=== PATIENT | male | born 1945 | race Caucasian/White ===

== ENCOUNTER 2019-01-03 15:27 | Inpatient (IN) ==
[2019-01-03] MEDS ORDERED: ASPIRIN PO ONE (15:50)
--- NOTE | 2019-01-03 15:53 | EKG Report ---
Test Performed on : 01/03/2019 3:46:50 PM Test Reason : SOB Blood Pressure : / mmHG Vent. Rate : 066 BPM Atrial Rate : 066 BPM P-R Int : 180 ms QRS Dur : 092 ms QT Int : 442 ms P-R-T Axes : 009 -09 -06 degrees QTc Int : 463 ms Normal sinus rhythm. Minimal voltage criteria for LVH, may be normal variant Inferior infarct , age undetermined Abnormal ECG No previous ECGs available Unconfirmed Result
[2019-01-03 16:14] LABS: BASO# 0.02 X1000 (0.0-0.2); BASO% 0.3 % (0.0-0.8); EOS# 0.11 X1000 (0.0-0.7); EOS% 1.7 % (0.0-10.0); HEMATOCRIT 39.7 % (42.0-52.0); HEMOGLOBIN 13.7 g/dL (14.0-18.0); LYMPH# 1.88 X1000 (1.2-3.4); LYMPH% 29.2 % (20.5-51.1); MCH 31.2 PG (27-31); MCHC 34.5 g/dL (33-37); MCV 90.4 FL (81-99); MONO# 0.59 X1000 (0.11-0.59); MONO% 9.2 % (1.7-9.3); NEUT# 3.84 X1000 (1.4-6.5); NEUT% 59.6 % (42.2-75.2); PLT 282 X1000 (130-400); RBC 4.39 XMIL (4.7-6.1); RDW 14.1 % (11.5-14.5); WBC 6.44 X1000 (4.8-10.8)
[2019-01-03 16:23] LABS: INR 0.96; PROTIME 12.9 Seconds (11.0-16.0); PTT 25.8 Seconds (22.3-41.8)
[2019-01-03 16:32] LABS: AGAP 15; ALB/GLOB RATIO 1.7; ALBUMIN 4.6 g/dL (3.5-5.0); ALKALINE PHOSPHATASE 68 U/L (32-122); BUN 17 mg/dL (8-22); CALCIUM 8.9 mg/dL (8.8-10.2); CHLORIDE 101 mmol/L (98-107); CK PROFILE 104 U/L (24-204); COSMO 287; CREATININE 1.1 mg/dL (0.7-1.2); ESTIMATED GFR > 60; GLUCOSE 101 mg/dL (70-104); GOT 40 U/L (10-34); GPT 52 U/L (10-44); POTASSIUM 3.6 mmol/L (3.5-5.1); SODIUM 143 mmol/L (136-145); TCO2 27 mmol/L (25-35); TOTAL BILIRUBIN 0.31 mg/dL (0.20-1.00); TOTAL PROTEIN 7.3 g/dL (6.3-8.3)
--- NOTE | 2019-01-03 16:52 | Diag Imaging Result Doc PS360 ---
CHEST-2 VIEWS - 01/03/2019 INDICATION: SOB COMPARISON: None FINDINGS: There is some patchy atelectasis in both lung bases, nonspecific. Heart size is borderline enlarged. No pneumothorax or pleural effusion. IMPRESSION: Nonspecific patchy atelectasis in both lung bases. Electronically signed by Abilio Mccullough 01/03/2019 4:50 PM
[2019-01-03] MEDS ORDERED: DUONEB (A & A) INH ONE (18:12)
[2019-01-03] MEDS ORDERED: LASIX IV ONE (18:51)
--- NOTE | 2019-01-03 19:02 | PROVIDER DOCUMENTATION ---
This chart was entered by Katherine Lorenzo Scribe, acting as scribe for Chrystal Donnelly MD. HPI-Respiratory General - General Chief Complaint: Shortness of Breath Stated Complaint: BP HIGH VERY WEAK SOB Time Seen by Provider: 01/03/19 17:55 Source: patient Allergies/Adverse Reactions: Patient Allergies Allergy/AdvReac Type Severity Reaction Status Date / Time No Known Allergies Allergy Verified 01/03/19 18:43 Home Medications: Home Medication List Medication Instructions Recorded Confirmed Last Taken Type Buspirone HCl 7.5 mg PO BID 01/03/19 01/03/19 Unknown History Dextroamphetamine/Amphetamine 10 mg PO TID 01/03/19 01/03/19 Unknown History [Adderall 10 mg Tablet] Indapamide 2.5 mg PO BID 01/03/19 01/03/19 Unknown History Metoprolol [Lopressor] 100 mg PO BID 01/03/19 01/03/19 Unknown History Rizatriptan Benzoate [Rizatriptan] 5 mg SUBLINGUAL BID PRN 01/03/19 01/03/19 Unknown History - History of Present Illness-Resp Nature of Presenting Problem: pt is a 73 yom c/o sob x 5-6 weeks. pt rpts that sob is worse when exerting self when walking. denies LE weakness and edema. no rx allergies. pt is in no acute distress, a&ox3. pt is a former smoker for 10yrs, smoked 1ppd. pt has hx of HTN. sx appendectomy. Onset/Duration: reports: other (5-6 wks) Exposure: reports: unknown cause Cough Quality/Degree: reports: no cough Modifying Factors: improves with: exertion Review of Systems - Adult - REVIEW OF SYSTEMS - ADULT Constitutional: reports: no symptoms reported. denies: chills, fever, night sweats Eyes: reports: no symptoms reported Ears, Nose, Mouth & Throat: reports: no symptoms reported Cardiovascular: reports: no symptoms reported Respiratory: reports: see HPI, dyspnea on exertion. denies: chronic cough, cough, hemoptysis, pleurisy, wheezing Gastrointestinal: reports: no symptoms reported Genitourinary: reports: no symptoms reported Musculoskeletal: reports: no symptoms reported Integumentary: reports: no symptoms reported Neurological: reports: no symptoms reported Psychiatric: reports: no symptoms reported Endocrine: reports: no symptoms reported Hematologic/Lymphatic: reports: no symptoms reported Allergic/Immunologic: reports: no symptoms reported All Other Systems: Reviewed and Negative Past History - Adult - PAST MEDICAL HISTORY-ADULT Review of Records: reports: Old Records Reviewed, Nursing Assessment Review, Medications Reviewed, Social history reviewed & non-contributory. Major Childhood Illnesses: reports: denies history Cardiovascular: reports: HTN Respiratory: reports: denies history Gastrointestinal: reports: denies history Obstetrical/Gynecological: reports: denies history Genitourinary: reports: denies history Musculoskeletal: reports: denies history Neurological: reports: denies history Psychiatric: reports: other (adhd, add) Endocrine/Immune: reports: denies history Other Conditions: reports: denies history - PRIOR SURGERIES/PROCEDURES Surgical/Procedure History: reports: appendectomy - IMMUNIZATION STATUS Childhood Immunizations: See Nurse Assessment Flu Vaccine: See Nurse Assessment - FAMILY HISTORY Family History: reviewed, not pertinent - SOCIAL HISTORY Smoking: other (former smoker for 10 years 1ppd) Substance Use: none/never Physical Exam-General - PHYSICAL EXAM-ADULT Initial Vital Signs Reviewed: Yes - CONSTITUTIONAL General Appearance: appears well, alert, no apparent distress. negative: lethargic, slow to respond, obtunded, combative - EYES Eyes: PERRL/EOMI, pink conjunctivae - HEAD, EARS, NOSE, MOUTH & THROAT HENMT: normocephalic/atraumatic, moist mucous membranes, normal ENT inspection - NECK Neck: non-tender, full range of motion, supple, normal inspection - RESPIRATORY Respiratory: chest non-tender, lungs clear, normal breath sounds, no pleuratic chest pain, no respiratory distress, no accessory muscle use. negative: respiratory distress, decreased breath sounds, rales, wheezing - CARDIOVASCULAR Cardiovascular: normal peripheral pulses, regular rate, rhythm - GASTROINTESTINAL (ABDOMEN) Abdominal Exam: normal bowel sounds, non tender, soft - LYMPHATIC Lymphatic: no adenopathy - MUSCULOSKELETAL Back Exam: normal inspection, no CVA tenderness, no vertebral tenderness Extremity: normal range of motion, non-tender, normal inspection, no pedal edema , no calf tenderness, normal capillary refill, pelvis stable, other (no LE edema). negative: pulse deficit, slow capillary refill, swelling, tenderness Peripheral Pulses: radial (R): 2+, radial (L): 2+ - SKIN Integumentary: normal color, normal turgor, warm/dry - NEUROLOGIC Neurologic: readers' advisory service librarian II-XII nml as tested, grossly normal, no motor/sensory deficits - PSYCHIATRIC Psych/Mental Status: normal mood/affect, normal thought content, normal thought process, oriented x 3 Progress - PLAN OF CARE/RESULTS Progress/Plan/Lab Results: Vital Signs - 8 hr 01/03/19 15:39 01/03/19 17:37 01/03/19 18:31 Temperature 98.2 F 98.9 F Pulse Rate 68 66 66 Respiratory Rate 18 18 15 Blood Pressure 158/93 160/97 O2 Sat by Pulse Oximetry 99 96 100 01/03/19 18:35 Temperature Pulse Rate 64 Respiratory Rate 12 Blood Pressure 174/88 O2 Sat by Pulse Oximetry 100 Laboratory Results - last 24 hr 01/03/19 01/03/19 01/03/19 15:53 15:53 15:53 WBC 6.44 RBC 4.39 L Hgb 13.7 L Hct 39.7 L MCV 90.4 MCH 31.2 H MCHC 34.5 RDW Std Deviation 14.1 Plt Count 282 MPV 9.0 Immature Gran % (Auto) 0.0 Neut % (Auto) 59.6 Lymph % (Auto) 29.2 Jackson % (Auto) 9.2 Eos % (Auto) 1.7 Baso % (Auto) 0.3 Immature Gran # (Auto) 0.00 Neut # (Auto) 3.84 Lymph # (Auto) 1.88 Jackson # (Auto) 0.59 Eos # (Auto) 0.11 Baso # (Auto) 0.02 PT INR PTT (Actin FS) D-Dimer, Quantitative Sodium 143 Potassium 3.6 Chloride 101 Carbon Dioxide 27 Anion Gap 15 BUN 17 Creatinine 1.1 Estimated GFR/1.73 m2 > 60 BUN/Creatinine Ratio 15 Glucose 101 Calculated Osmolality 287 Calcium 8.9 Total Bilirubin 0.31 AST 40 H ALT 52 H Alkaline Phosphatase 68 Creatine Kinase 104 Troponin T [id number]-[id number] Pept 793 H Total Protein 7.3 Albumin 4.6 Globulin 2.7 Albumin/Globulin Ratio 1.7 01/03/19 01/03/19 01/03/19 15:53 15:53 15:57 WBC RBC Hgb Hct MCV MCH MCHC RDW Std Deviation Plt Count MPV Immature Gran % (Auto) Neut % (Auto) Lymph % (Auto) Jackson % (Auto) Eos % (Auto) Baso % (Auto) Immature Gran # (Auto) Neut # (Auto) Lymph # (Auto) Jackson # (Auto) Eos # (Auto) Baso # (Auto) PT 12.9 INR 0.96 PTT (Actin FS) 25.8 D-Dimer, Quantitative 0.36 Sodium Potassium Chloride Carbon Dioxide Anion Gap BUN Creatinine Estimated GFR/1.73 m2 BUN/Creatinine Ratio Glucose Calculated Osmolality Calcium Total Bilirubin AST ALT Alkaline Phosphatase Creatine Kinase Troponin T < 0.010 Kkc-Q-[id number] Pept Total Protein Albumin Globulin Albumin/Globulin Ratio Orders Category Date Time Status Cardiac Monitoring DIRECTED Care 01/03/19 15:50 Active Oxygen Therapy- ED Nursing DIRECTED Care 01/03/19 15:50 Active Saline Loc NOW Care 01/03/19 15:50 Active CHEST-2 VIEWS [RAD] Stat Exams 01/03/19 15:50 Completed CBC WITH ELECTRONIC DIFF [HEME] Stat Lab 01/03/19 15:53 Completed CK PROFILE [SP CHEM] Stat Lab 01/03/19 15:53 Completed CK TOTAL [CHEM] Stat Lab 01/03/19 19:00 Ordered COMPREHENSIVE METABOLIC PANEL [CHEM] Stat Lab 01/03/19 15:53 Completed D-DIMER [COAG] Stat Lab 01/03/19 15:57 Completed PRO B-NATRIURETIC PEPTIDE Stat Lab 01/03/19 15:53 Completed PROTIME WITH INR [COAG] Stat Lab 01/03/19 15:53 Completed PTT [COAG] Stat Lab 01/03/19 15:53 Completed TROPONIN T Stat Lab 01/03/19 15:53 Completed TROPONIN T Stat Lab 01/03/19 19:00 Ordered Albuterol 2.5MG/Ipratrop 0.5MG [Duoneb (A & A)] Med 01/03/19 18:12 Discontinue d 3 ml INH NOW ONE Aspirin Med 01/03/19 15:50 Discontinued 325 mg PO NOW ONE Furosemide [Lasix] Med 01/03/19 18:51 Discontinued 20 mg IV NOW ONE Aerosol Treatments Routine Oth 01/03/19 18:12 Completed Aerosol Treatments Stat Oth 01/03/19 18:12 Completed CP/SOB/Palp >45 yrs of Age Stat Oth 01/03/19 15:50 Ordered EKG [EKG] Stat Ther 01/03/19 15:50 Draft EKG [EKG] Stat Ther 01/03/19 18:07 Ordered Result Diagrams: 01/03/19 15:53 01/03/19 15:53 - REASSESSMENT Reassessment #1 Time Reassessed: 18:34 Status: other (BOTH LABS AND IMAGE REVIEWED. ELEVATED BNP IN THE SETTING OF EXTREME STRESS AT HOME CONCERN FOR NONISCHEMICA CARDIOMYOPATHY POSSIBLY [place] CARDIOMYOPATHY. WILL SPEAK TO HOSPITALIST FOR ADMISSION FOR NEW ONSET HEART FAILURE.) - EKG 1 Time of EKG reading by physician:: 15:46 EKG Read and Signed by:: Ermias London EKG Interpretation (*Must complete 3 of following elements*): Abnormal Rate: 66 Rhythm: NSR [place]: normal QRS: LVH (minimal voltage criteria for LVH, may be normal variant.) [place] Interval: normal ST Wave: normal Comments: inferior infarct, age undetermined. - XRAY 1 XRAY Study: Chest Impression: Abnormal, See EMR Report (CHEST-2 VIEWS - 01/03/2019 INDICATION: SOB COMPARISON: None FINDINGS: There is some patchy atelectasis in both lung bases, nonspecific. Heart size is borderline enlarged. No pneumothorax or pleural effusion. IMPRESSION: Nonspecific patchy atelectasis in both lung bases. Electronically signed by Abilio Mccullough 01/03/2019 4:50 PM) - CONSULTS/PCP/HOSPITALIST Notification #1 *Consult/PCP/Hospitalist*: Irma Time Discussed: 18:59 Consult Disposition: Admit Departure - Departure Date of Disposition Decision: 01/03/19 Time of Disposition Decision: 19:01 DIAGNOSIS: CHF exacerbation, Elevated brain natriuretic peptide (BNP) level Disposition: ADMITTED INPATIENT 09 Certified Medical Emergency: Emergent Condition: Stable Referrals and Follow-Ups: Ana María Lazaro CRNP [Primary Care Provider] - - Critical Care Note This patient required my direct & personal management of CC.: No Attestation - Physician/ SHELDON Attestation Patient care was provided by Advanced Practice Provider:: No The physician spent face to face time with patient:: Yes Advanced Practice Provider documentation review:: Supervising physician onsite and consulted in the evaluation and care of this patient. The physician did have a face to face encounter with the patient. This chart was documented by the indicated scribe, (Katherine Lorenzo Scribe) and accurately reflects the services I performed and decisions made by me, Chrystal Donnelly MD, as attested by the provider's signature.
[2019-01-03] MEDS ORDERED: KLOR-CON PO ONE (19:54)
--- NOTE | 2019-01-03 21:15 | Diag Imaging Result Doc PS360 ---
CT THORAX W/O CONTRAST - 01/03/2019 INDICATION: progressive dyspnea COMPARISON: Previous chest x-ray FINDINGS: There is no adenopathy. Heart size is normal. There is severely advanced calcified coronary artery disease mainly at the left anterior descending coronary artery. There is diffuse fatty change of the liver. Otherwise upper abdominal images are unremarkable. There is mild multifocal linear atelectasis in the lung bases. There are some small clustered nodules in the right lower lobe. The largest measures about 8.5 mm. Otherwise, no infiltrates. There is mild diffuse bronchiectasis. No bronchial wall thickening. Bones are intact and well mineralized. IMPRESSION: 1. Diffuse bronchiectasis. Scattered atelectasis in the lung bases. 2. Fatty liver. 3. Clustered nodules in the right lower lobe, nonspecific but likely granulomas. Recommend a follow-up chest CT in about 3-6 months. This exam was performed using automated exposure control, adjustment of mA or kV according to patient size, and/or use of iterative reconstruction technique Electronically signed by Abilio Mccullough 01/03/2019 9:13 PM
[2019-01-03] MEDS ORDERED: TYLENOL PO PRN (21:19)
[2019-01-03] MEDS ORDERED: ZOFRAN IV PRN (21:19)
--- NOTE | 2019-01-03 21:19 | HISTORY AND PHYSICAL ---
PRIMARY CARE PHYSICIAN: ARIS Wright REASON FOR ADMISSION: Four to six-week history of dyspnea. HISTORY OF PRESENT ILLNESS: Rashawn Oconnell is a 73-year-old male with past medical history of hypertension and migraines who comes in today complaining of progressive shortness of breath over the last 4 or 6 weeks. He denies any PND, orthopnea, chest pain, admits to having occasional cough. His denies any weight loss, fever or chills. The patient denies any night sweats. He does have a history of mild seasonal allergic rhinitis but states that other than having postnasal drip, does not have any ocular or nasal pruritus. No contact with chemicals. No recent change in his medications other than increasing the dose of indapamide to b.i.d. He says since they have done this, not only does he have shortness of breath, he has weakness in his legs. He denies any vomiting or diarrhea. He denies any genitourinary complaints other than poor urinary stream, which is chronic for years. No hematuria. No bleeding from any orifice. He denies any leg cramps. Since he has been in the ER, he got nebulizer treatments. He says it made him feel a little better. I forgot to mention he does admit to having occasional dry cough. No leg swelling or abdominal swelling. REVIEW OF SYSTEMS: Twelve system review was done. Positive findings per HPI. ALLERGIES: None. MEDICATIONS: He is on Adderall 10 mg t.i.d., BuSpar 7.5 mg b.i.d., indapamide 2.5 mg b.i.d., Lopressor 100 mg b.i.d., rizatriptan 5 mg p.r.n. SURGICAL HISTORY: Appendectomy and wisdom tooth extraction. SOCIAL HISTORY: Stopped smoking 40 years ago. No alcohol or drug use. , lives with . FAMILY HISTORY: Notable for heart disease, type 2 diabetes, but no cancer. LABORATORY WORK: White count 6000, hemoglobin and hematocrit 13 and 39, platelets 282,000. Potassium 3.6, BUN 17, creatinine 1.1, AST 40, ALT 52. Troponin is negative. ProBNP 793. PT, PTT and D-dimer are normal. IMAGING: Chest film showed nonspecific patchy atelectasis in both lungs. PHYSICAL EXAMINATION: VITAL SIGNS: Blood pressure 174/88, heart rate 64, respirations 17, temperature is 98.9 degrees, 100% on room air. GENERAL: An elderly man not in acute distress. He is alert and oriented to person, place, and time with sad affect and depressed mood. HEAD: Normocephalic, atraumatic. EYES: PERRLA. EOMI. He is anicteric, not pale. ENT EXAM: Grossly normal. There is no cyanosis. NECK: Supple. No JVD or carotid bruit. No thyromegaly. CHEST: Clear when auscultated with good air entry both lung stevens. CARDIOVASCULAR: First and second heart sounds heard. No gallops or rubs. Regular. ABDOMEN: Protuberant, soft, nontender. No organomegaly. Bowel sounds normal. RECTAL: Deferred. EXTREMITIES: Diminished distal pulse volumes, regular, symmetrical. No edema, clubbing or cyanosis. NEUROLOGICAL EXAM: No gross focal deficits. SKIN: Intact. No breakdown, lesion or erythema. MUSCULOSKELETAL EXAM: Grossly normal. ASSESSMENT: 1. Subacute dyspnea, etiology yet to be determined. It could represent subclinical asthma based on his allergic rhinitis and mild improvement in breathing treatment. Continue the patient on breathing treatments and ordered a CT thorax. We will also start patient on moderate doses of prednisone to see if this improves the symptoms by tomorrow. 2. Hypertension, appears to be not optimally controlled. I would for now monitor blood pressure and decide on possibly putting patient on Aldactone to counter potassium losses from indapamide. Also need to check patient for orthostasis too as he says as long as he is at rest he feels fine, but when he ambulates, he feels his legs keep trying to give out on him. 3. Migraines, currently stable. We will monitor. Also additionally would order an echocardiogram due to the fact the patient has a strong family history of heart failure to see if there is a cardiac component to his complaints. If nothing can be found, I will recommend possibly an outpatient PFT and possible high-resolution CT scan to rule out any occult interstitial lung disease. cc: Raymond Lei MD
[2019-01-03] MEDS: BUSPAR PO SCH (21:40)
[2019-01-03] MEDS: LOPRESSOR PO SCH (21:40)
[2019-01-03] MEDS: AMBIEN PO SCH (21:40)
[2019-01-03] MEDS: DUONEB (A & A) INH SCH (21:47)
[2019-01-03] MEDS: PRILOSEC PO SCH (22:28)
[2019-01-04] MEDS: DUONEB (A & A) INH SCH ×3 (05:51→21:18)
[2019-01-04] MEDS: PRILOSEC PO SCH (06:17)
[2019-01-04] MEDS ORDERED: PRILOSEC PO SCH (07:00)
[2019-01-04] MEDS: ADDERALL PO SCH ×3 (07:56→16:38)
[2019-01-04 08:05] LABS: AGAP 16; BUN 18 mg/dL (8-22); CALCIUM 8.9 mg/dL (8.8-10.2); CHLORIDE 98 mmol/L (98-107); COSMO 284; CREATININE 1.1 mg/dL (0.7-1.2); ESTIMATED GFR > 60; GLUCOSE 115 mg/dL (70-104); MAGNESIUM 1.9 mg/dL (1.5-2.7); POTASSIUM 3.1 mmol/L (3.5-5.1); SODIUM 141 mmol/L (136-145); TCO2 27 mmol/L (25-35)
[2019-01-04] MEDS: LOZOL PO SCH (09:40)
[2019-01-04] MEDS: LOPRESSOR PO SCH ×2 (09:40→20:48)
[2019-01-04] MEDS: BUSPAR PO SCH ×2 (09:41→20:48)
[2019-01-04] MEDS: PREDNISONE PO SCH (09:41)
[2019-01-04] MEDS ORDERED: XANAX PO ONE (16:43)
--- NOTE | 2019-01-04 17:08 | ECHO REPORT ---
ORDER DATE: 01/03/2019 INDICATION: Hypertension, dyspnea, and headache. M-MODE MEASUREMENTS: Left ventricle end diastole: 4.1. Left ventricle end systole: 3.0. Posterior wall: 1.1. Interventricular septum: 1.1. Left atrium: 3.9. Aortic diameter: 3.9. SUMMARY OF 2-DIMENSIONAL IMAGIN. Left ventricular function is normal. Ejection fraction appears to be in the order of 55% to 60%. There is no wall motion abnormality noted. 2. The mitral valve shows normal opening of the leaflets. Color flow mapping shows no significant regurgitation. 3. The pulsed wave Doppler of mitral inflow shows a reversal of the E and the A ratio. Ratio is 0.7. 4. Tissue Doppler of septal and lateral mitral annulus averages 7 cm. There is no diastolic dysfunction. 5. The aortic valve shows calcification of the cusps without stenosis. Color flow mapping indicates a mild degree of regurgitation. 6. The pulmonic valve is normal. Color flow mapping unremarkable. 7. The tricuspid valve shows a mild degree of regurgitation. The inferior vena cava is not dilated. 8. Pulmonary pressure is estimated at 28 mmHg. The pulmonary venous flow is normal. 9. There is no pericardial effusion, no mass, and no thrombus. 10.The atria did not appear to be dilated. 11.The right-sided chambers appeared to be normal. Clinical correlation recommended. cc: MD Raymond Foy MD
--- NOTE | 2019-01-04 18:43 | PROGRESS NOTE ---
DATE: 01/04/2019 SUBJECTIVE: This patient is lying comfortably in bed. He is still having some shortness of breath, but much better compared with yesterday. Actually, his vital signs are stable, I discussed the case by phone with Dr. Martin and I explained to him all the results including the CT scan result that showed diffuse bronchiectasis and clustered nodules in the right lower lobe that were nonspecific and there are likely granuloma. I will consult him just to rule out any other problems. OBJECTIVE: Vital Signs: Temperature 98 degrees, pulse 63, respiratory rate 22, blood pressure 120/60, oxygen saturation 95% on room air. HEENT: Head normocephalic, no trauma. PERRLA. Neck: Supple. No JVD. No masses. Central trachea. Chest: Clear to auscultation. Some crepitus at the bases. Abdomen: Soft, nontender, nondistended. No hepatosplenomegaly. Extremities: No edema. No clubbing. No cyanosis. Neurological: The patient is alert. He is oriented x3. No focal deficits. His strength is normal. LABORATORY: Sodium 141, potassium 3.1, chloride 98, bicarbonate 27, BUN 18, creatinine 1.1, glucose 115, calcium 8.9, magnesium 1.9. ASSESSMENT AND PLAN: 1. Shortness of breath. He seems to be feeling better at this moment. This could be related to his stressful situation, but the CT scan also showed some diffuse bronchiectasis and clustered nodules in the right lower lobe. I have requested an evaluation by Dr. Martin. I already discussed the case with him. I will continue with the same management. 2. Hypertension. Seems to be more stable now. His blood pressure has been decently controlled today. As per the patient, since he seems to be having problem with his only son, his blood pressure was elevated yesterday, as well as his 's. Today, the last one at noon is 120/60. I will just monitor for now. 3. History of migraines. Stable at this point. 4. This patient is going through a stressful situation due to a family problem, I do believe some of the symptoms are related to that, but we need to rule out any medical problem. cc: Yunier Caceres MD
[2019-01-04] MEDS: AMBIEN PO SCH (20:48)
--- NOTE | 2019-01-05 00:37 | CONSULTATION ---
DATE OF CONSULTATION: 01/04/2019 REQUESTING PROVIDER: Dr. Yunier Thomas. REASON FOR CONSULTATION: Bronchiectasis, granulomas. HISTORY OF PRESENT ILLNESS: This is a 73-year-old male with a medical history of hypertension and migraines. He presented to the ER yesterday afternoon with worsening shortness of breath, generalized weakness and nonproductive cough for 5-6 weeks. Initial workup in the ER was nonsignificant, except that AST, ALT and proBNP were slightly elevated. CT thorax without contrast revealed diffuse bronchiectasis, scattered atelectasis in the lung bases, fatty liver and clustered nodules in the right lower lobe, nonspecific but likely granulomas. The patient currently is sitting on the edge of the bed. He states he is feeling a lot better. He tolerates room air. He reports some nonproductive cough, which is apparently worse in the nighttime. He reports acid reflux, controlled by omeprazole for a long time. He reports he is usually hungry before bedtime, so he generally eats something before going to bed. He has no fever, chills, chest pain, palpitation, wheezing, weakness, snoring, paroxysmal nocturnal dyspnea, poor appetite, noticeable weight change, bowel habit change or urination discomfort. He does have some seasonal allergic rhinitis, but no noticeable postnasal drip. He has no pedal edema, chills, or night sweats. PAST MEDICAL HISTORY: 1. Hypertension. 2. Gastroesophageal reflux disease. 3. Migraines. PAST SURGICAL HISTORY: 1. Appendectomy. 2. [place] tooth extraction. SOCIAL HISTORY: The patient is and lives at home with his family. He has one son who apparently has significant history of polysubstance abuse and brings lots of trouble and stress to the family. The patient has a [id number] smoking history. He quit 40 years ago. He has no history of alcohol or illicit drug use. FAMILY HISTORY: Positive for heart disease, diabetes mellitus type 2. ALLERGIES: No known drug allergies. REVIEW OF SYSTEMS: A 10-point review of systems was conducted and the pertinence is listed within the HPI, otherwise noncontributory. PHYSICAL EXAMINATION: Vital signs: Temperature 98.0 degrees, blood pressure 120/60, pulse 63, respiratory rate 22, oxygen saturation 95% on room air. General: Chronically ill appearing, sitting on the edge of the bed. No acute distress noted. HEENT: Atraumatic, normocephalic. Trachea midline. Mucosa pink and moist. Respiratory: Even and unlabored. Symmetrical excursion. Clear to auscultation bilaterally. Cardiovascular: Regular rate and rhythm. Gastrointestinal: Protuberant, soft, nontender. Normoactive bowel sounds in all 4 quadrants. Extremities: No pedal edema. No cyanosis. No clubbing. Dorsalis pedis diminished bilaterally. Neurologic: Alert and oriented x4. Speech fluent. Follows commands. Generalized weakness. LABORATORY DATA: Sodium 141, potassium 3.1, chloride 98, carbon dioxide 27, BUN 18, creatinine 1.1. ASSESSMENT: This is a 73-year-old male with medical history of hypertension, gastroesophageal reflux disease and migraines. He has been admitted since yesterday with subacute dyspnea. 1. Mild multifocal linear atelectasis in the lung bases, with mild diffuse bronchiectasis and some small clustered nodules in the right lower lobe. The largest pulmonary nodule measures about 8.5 mm. They are nonspecific, likely represent granulomas. 2. Severely advanced calcified coronary artery disease, mainly at the left anterior descending coronary artery. 3. Dyspnea. 4. Gastroesophageal reflux disease. PLAN: 1. Continue breathing treatment. 2. Encourage deep breathing, cough, and incentive spirometer use routinely. 3. Recommend outpatient followup with CT scan in 3-6 months. 4. Recommend refuse laborer evaluation for severely advanced calcified coronary artery disease. 5. Recommend maintenance PPI therapy for the gastroesophageal reflux disease. 6. Further recommendations pending hospital course. Thank you for the courtesy of this consult. Dictated by ARIS Srivastava for Dinora Martin MD cc: ARIS Srivastava MD [facility]
[2019-01-05] MEDS: DUONEB (A & A) INH SCH ×2 (05:24→15:37)
[2019-01-05] MEDS: PRILOSEC PO SCH (06:19)
[2019-01-05 07:41] LABS: AGAP 18; BUN 25 mg/dL (8-22); CHLORIDE 97 mmol/L (98-107); COSMO 279; CREATININE 0.9 mg/dL (0.7-1.2); ESTIMATED GFR > 60; GLUCOSE 107 mg/dL (70-104); POTASSIUM 2.9 mmol/L (3.5-5.1); SODIUM 137 mmol/L (136-145); TCO2 22 mmol/L (25-35)
[2019-01-05] MEDS: ADDERALL PO SCH ×3 (08:09→16:43)
[2019-01-05] MEDS: BUSPAR PO SCH (10:09)
[2019-01-05] MEDS: PREDNISONE PO SCH (10:09)
[2019-01-05] MEDS: LOPRESSOR PO SCH (10:10)
[2019-01-05] MEDS: LOZOL PO SCH (10:10)
[2019-01-05] MEDS ORDERED: KLOR-CON PO ONE (11:23)
[2019-01-05] MEDS ORDERED: XANAX PO ONE (13:15)
[2019-01-05 15:17] VITALS: BP 137/78
[2019-01-05] MEDS ORDERED: DUONEB (A & A) INH PRN (15:39)
--- NOTE | 2019-01-06 12:30 | DISCHARGE SUMMARY ---
ADMISSION DATE: 01/03/2019 DISCHARGE DATE: 01/05/2019 DISCHARGE DIAGNOSES: 1. Severe anxiety, shortness of breath. 2. CT scan that showed bronchiectasis and clustered nodules in the right lower lobe. 3. Hypertension, resolved. 4. History of migraines. PROCEDURES PERFORMED: Chest x-ray dated 01/03/2019. Impression: Nonspecific patchy atelectasis in both lung bases. Chest CT scan dated 01/03/2019. Impression: Diffuse bronchiectasis, scattered atelectasis in lung bases, fatty liver, clustered nodules in the right lower lobe, nonspecific but likely granulomas. CONSULTS: Pulmonary department, Dr. Martin. HOSPITAL COURSE: A 73-year-old, male with a past medical history of hypertension and migraines who came in to the emergency department and was admitted on 01/03/2019 due to shortness of breath over the last 4 to 6 weeks. He denies any PND, orthopnea, or chest pain but he has been having occasional cough. He denies any weight loss, fever, or chills. The patient denies any night sweats. He does have a history of mild seasonal allergies, rhinitis, but states that other than having postnasal drip, he does not have any ocular or nasal problems. No contact with chemicals. No recent change in his diet or increasing the dose of his treatment. He is not only complaining of shortness of breath but also he has been complaining of some weakness in his legs. He denies any vomiting or diarrhea, any genitourinary complaints other than poor urination stream which has been chronic for years. No hematuria. No bleeding from any place. He denies any leg cramps. He was admitted due to this shortness of breath. A CT scan showed diffuse bronchiectasis with clustered nodules in the right lower lobe. When I examined this patient, he was basically really anxious and crying. He was asking for medication for anxiety. I gave him a low dose of Xanax x1 daily. He seems to be responding good to this treatment. He has an anxiety disorder which is quite severe because he has an alcoholic son and he has been having problems with him. Actually, the day that he came into the emergency department, he came with his and his also was evaluated in the emergency department due to hypertension and anxiety but she went home. As soon as I evaluated this patient, he was always talking about the same problem. Given his condition and his severe anxiety, I have requested an evaluation by [facility] to see if this patient meets criteria for admission or at least for an evaluation. He does not have suicidal ideation or homicidal ideation but he seems to be really anxious. After evaluation, they have decided that this patient does not meet criteria for admission and they recommended to the patient to come to the emergency department if he feels worse or if he has some suicidal ideation. This is what the patient told me that he discussed with [facility]. He is asking me to continue with his Xanax and I will since he seems to be a little bit better. I will give him a really low dose of Xanax and I instructed the patient not to drive if he is going to take this medication. He should take 0.25 mg every 12 hours as needed for anxiety. At the moment of discharge, this patient was in a stable medical condition, tolerating p.o., and he was ambulating by himself. He was complaining of some mild weakness at the level of the lower extremities but I did not find anything with my physical exam and he is not having problems with the urine or with the bowel movements. No change in his sensitivity either. The patient needs to follow up in 1 week with his primary care doctor. PHYSICAL EXAMINATION: Vital Signs; Temperature 97.6 degrees, pulse 63, respiratory rate 19, blood pressure 137/78, oxygen saturation 97% on room air. HEENT: Head normocephalic. No trauma. PERRLA. Neck: Supple. No JVD. No masses. Central trachea. Chest: Clear to auscultation. No wheezing. No rales. Abdomen: Soft, nontender, nondistended. No hepatosplenomegaly. Extremities: No edema, no clubbing, no cyanosis. Neurological Examination: The patient is alert and oriented x3. His strength is normal and he is anxious. LABORATORY DATA: Sodium 137, potassium 2.9, chloride 97, bicarbonate 22, BUN 25, creatinine 0.9, glucose 107, calcium 9. FOLLOWUP: With Dr. Martin in 2 to 3 weeks and follow up with his primary care doctor, Ms. Ana María Lazaro, in 1 week. DISCHARGE MEDICATIONS: 1. Xanax 0.25 mg p.o. q.12 hours as needed for anxiety. 2. Buspirone 7.5 mg p.o. b.i.d. 3. Adderall 10 mg p.o. t.i.d. 4. Indapamide 2.5 mg p.o. b.i.d. 5. Metoprolol 100 mg p.o. b.i.d. 6. Omeprazole 20 mg p.o. daily. 7. Rizatriptan 5 mg sublingual b.i.d. as needed for migraines. 8. Ambien 5 mg p.o. at bedtime. cc: Yunier Caceres MD
== END 2019-01-05 19:00 | disposition home or self-care (01) ==
LOC: ED 15:27 → SUATTDRO 20:06 → 3N 20:06
PROVIDERS: ATTEND Internal Medicine